=== PATIENT | male | born 1990 | race Caucasian/White ===

== ENCOUNTER 2019-05-28 17:26 | Emergency (ER) | payer OTHER, SELFPAY ==
[2019-05-28 17:37] VITALS: BP 133/83; PULSE 94; RESP 20; TEMP 37; O2SAT 100
--- NOTE | 2019-05-28 18:24 | ED.URI ---
HPI - URI/Sore Throat General Chief Complaint: Upper Respiratory Infection Stated Complaint: BODY ACHES/SORE THROAT Time Seen by Provider: 05/28/19 18:16 Source: patient Mode of arrival: ambulatory Limitations: no limitations History of Present Illness HPI Narrative: 28-year-old male presents for evaluation of symptoms that developed roughly 48 hours ago. He is reporting sore throat, body aches, sinus drainage, sinus pressure, cough dry and productive. He has used Robitussin, NyQuil, ibuprofen for symptoms. He did receive a flu shot this season. Denies any medical history. Denies smoking. No wheezing, shortness of breath, chest pain, fever, rash, abdominal pain. with similar symptoms. Related Data Allergies Allergy/AdvReac Type Severity Reaction Status Date / Time No Known Allergies Allergy Unverified 07/10/16 17:32 Review of Systems Review of Systems: Narrative: CONSTITUTIONAL: Denies fever, weight loss. Reports chills and sweats EYES: Denies visual changes, redness, or discharge. ENT: Reports rhinorrhea, congestion, sore throat, otalgia. CARDIOVASCULAR: Denies chest pain, palpitations, or edema. RESPIRATORY: Denies dyspnea. Reports cough GASTROINTESTINAL: Denies abdominal pain, nausea, vomiting, or diarrhea. GENITOURINARY: Denies dysuria, hematuria, urinary frequency, malordous urine SKIN: Denies rash or itching. MUSCULOSKELETAL: Denies back pain, joint pain, swelling. Reports myalgia NEUROLOGIC: Denies headache, numbness, or weakness. PMFSH Comments At the time of my signature, I agree with nursing past medical, surgical, social and family history. There is no relevant family history pertinent to the presenting complaint. Exam Narrative: Exam Narrative: GENERAL: No distress, well appearing, well nourished, alert and calm HEAD: Normocephalic, atraumatic. No sinus tenderness noted EYES: Pupils equal, round. Extraocular movements intact. Conjunctivae without redness or drainage. EARS: Tympanic membranes without erythema. TM landmarks intact with good light reflex. Ear canals without discharge. NOSE: Nares patent. Nasal turbinates inflamed. no nasal discharge MOUTH: Mucous membranes moist. No lesions. No cyanosis. Dentition grossly normal. THROAT: Oropharynx with signs erythema.no exudates or lesions. Tonsils not enlarged. NECK: Supple. No lymphadenopathy. RESPIRATORY: Airway patent. Chest clear to auscultation bilaterally. Breath sounds equal bilaterally. No retractions. CARDIOVASCULAR: Regular rate and rhythm. No murmurs, rubs, gallops, or clicks. Capillary refill <2 seconds. SKIN: Color normal. Warm and dry. No rashes. NEURO: Alert. Motor intact in all extremities. Muscle tone normal. Course Course Emergency Course: Obtain influenza swabs. Vital Signs Vital signs: Vital Signs Temperature 98.6 F 05/28/19 17:37 Pulse Rate 94 05/28/19 17:37 Respiratory Rate 05/28/19 17:37 Blood Pressure 133/83 05/28/19 17:37 Pulse Oximetry 100 05/28/19 17:37 Temperature 98.6 F 05/28/19 17:37 Pulse Rate 94 05/28/19 17:37 Respiratory Rate 05/28/19 17:37 Blood Pressure 133/83 05/28/19 17:37 Pulse Oximetry 100 05/28/19 17:37 Reviewed The patient has been informed that they may have pre-hypertension or Hypertension based on a BP reading in the department. I recommend that the patient call the primary care provider listed on their discharge instructions or a physician of their choice this week to arrange follow up for further evaluation of possible pre-hypertension or Hypertension MDM - URI/Sore Throat MDM Narrative Medical decision making narrative: Patient is in no acute distress and is non toxic appearing. He appears well appearing, sats 100%, no retractions. Flu a positive. Educated about Tamiflu, indication, possible side effects. Patient is appropriate for outpatient management, treatment, and follow up with PCP. Patient is aware of diagnosis, understands and agrees to treat
== END 2019-05-28 18:33 | disposition home or self-care (01) ==
PROVIDERS: Emergency Provider Nurse Practitioner
DX: J10.1 Influenza due to other identified influenza virus with other respiratory manifestations (principal)
CPT/HCPCS: 87804; 99213; G0463